=== PATIENT | male | born 1960 | race Hispanic/Latino ===

== ENCOUNTER 2016-11-24 12:46 | Inpatient (IN) | payer MEDICARE ==
[2016-11-24] MEDS ORDERED: MORPHINE IV ONE (13:34)
[2016-11-24] MEDS ORDERED: ZOFRAN IV ONE (13:34)
[2016-11-24] MEDS ORDERED: ZOFRAN ONE (13:35)
[2016-11-24] MEDS ORDERED: MORPHINE ONE (13:35)
--- NOTE | 2016-11-24 13:50 | XRay Report ---
AP CHEST: HISTORY: Hypertension CABG changes. AP view of the chest demonstrates a normal mediastinal and cardiac contour with clear lungs and normal bony and soft tissue structures. IMPRESSION: No acute cardiopulmonary process identified.
[2016-11-24 14:28] LABS: Urine Drugs of Abuse Note Disclamer
[2016-11-24 14:41] LABS: Basophils % (Auto) 0.8 % (0.0-1.8); Eosinophils % (Auto) 4.3 % (0.0-4.3); Hematocrit 39.4 % (35.5-45.6); Hemoglobin 13.3 gm/dl (11.8-15.2); Mean Corpuscular HGB Conc 34 % (32-34); Mean Corpuscular Hemoglobin 31 pg (28-32); Mean Corpuscular Volume 91 fl (84-94); Platelet Count 148 K/mm3 (140-440); Red Blood Count 4.32 M/mm3 (3.65-5.03); Red Cell Distribution Width 13.2 % (13.2-15.2); White Blood Count 11.2 K/mm3 (4.5-11.0)
--- NOTE | 2016-11-24 14:48 | Emergency Department Report ---
ED Chest Pain HPI - General Chief Complaint: Chest Pain Stated Complaint: CHEST PAIN Source: patient, EMS Mode of arrival: Stretcher Limitations: Altered Mental Status - History of Present Illness Initial Comments: Patient appears to be a somewhat strange historian. He received 2 mg of morphine and he states maybe that affected him. I see that he is on Keppra. He started to somewhat ramble about sometimes he looks out into space. I don't know if he has complex partial seizures and that's why he is on Keppra. However , I verified with the nurse in the EMS that the patient was not transported today for a seizure. Apparently he lives with his brother. He does admit that he had chest pain this morning and that he had some left arm numbness. He states the chest pain is 8 out of 10 although he appears in no distress at all after 2 mg of morphine. He states he has some minimal nausea and shortness of breath. Review of his previous records indicate that that he was admitted in August 2016. He was seen by Dr. Cordoba for chest pain. He is status post CABG approximately 10 years ago. It is thought that he had a stent in 2012 although the note states "?" regarding the date. MD Complaint: chest pain -: minutes(s) (patient was unclear about the duration) Onset: during rest Pain Location: substernal Pain Radiation: other (left arm numbness) Severity: moderate Quality: dull Consistency: now resolved Improves With: nothing Worsens With: nothing re: nausea, dyspnea Other Symptoms: denies: cough, fever, syncope Treatments Prior to Arrival: none Aspirin use within the Past 7 Days: (0) No - Related Data Home Medications Medication Instructions Recorded Confirmed Last Taken Aspirin EC [Aspirin Enteric Coated 81 mg PO DAILY 06/24/16 08/28/16 Unknown TAB] Carvedilol [Coreg] 3.125 mg PO BID 06/24/16 08/28/16 Unknown Isosorbide Mononitrate 30 mg PO DAILY 06/24/16 08/28/16 Unknown Lisinopril [Zestril TAB] 20 mg PO QDAY 06/24/16 08/28/16 Unknown Previous Rx's Medication Instructions Recorded Last Taken Type Simvastatin [Zocor TAB] 40 mg PO QHS #30 tablet 02/02/16 Unknown Rx levETIRAcetam [Keppra TAB] 1,000 mg PO BID #120 tablet 02/02/16 Unknown Rx Allergies Allergy/AdvReac Type Severity Reaction Status Date / Time No Known Allergies Allergy Verified 06/24/16 13:43 Heart Score - HEART Score History: Moderately suspicious EKG: Non-specific Age: 45-65 Risk factors: > 3 risk factors or hx of atherosclerotic disease Troponin: < normal limit HEART Score: 5 - Critical Actions Critical Actions: 4-6 pts:12-16.6% risk of adverse cardiac event. Should be admitted ED Review of Systems ROS: Stated complaint: CHEST PAIN Other details as noted in HPI Constitutional: denies: chills, fever Eyes: denies: eye pain, eye discharge, vision change ENT: denies: ear pain, throat pain Respiratory: shortness of breath. denies: cough, wheezing Cardiovascular: chest pain. denies: palpitations Endocrine: no symptoms reported Gastrointestinal: nausea. denies: abdominal pain, diarrhea Genitourinary: denies: urgency, dysuria Musculoskeletal: denies: back pain, joint swelling, arthralgia Skin: denies: rash, lesions Neurological: denies: headache, weakness, paresthesias Psychiatric: denies: anxiety, depression Hematological/Lymphatic: denies: easy bleeding, easy bruising ED Past Medical Hx - Past Medical History Previous Medical History?: Yes Hx Hypertension: Yes Hx CVA: Yes (2009) Hx Heart Attack/AMI: Yes Hx Congestive Heart Failure: No Hx Diabetes: No Hx Headaches / Migraines: Yes Hx Seizures: Yes Hx Asthma: No Hx COPD: No Hx HIV: No Additional medical history: coronary artery disease - Surgical History Hx Coronary Stent: Yes Hx Open Heart Surgery: Yes Additional Surgical History: triple bypass. stent - Social History Smoking Status: Current Every Day Smoker Substance Use Type: None - Medications Home Medications: Home Medications Medication Instructions Recorded Confirmed Last Taken Type Simvastatin [Zocor TAB] 40 mg PO QHS #30 tablet 02/02/16 08/28/16 Unknown Rx levETIRAcetam [Keppra TAB] 1,000 mg PO BID #120 tablet 02/02/16 08/28/16 Unknown Rx Aspirin EC [Aspirin Enteric Coated 81 mg PO DAILY 06/24/16 08/28/16 Unknown History TAB] Carvedilol [Coreg] 3.125 mg PO BID 06/24/16 08/28/16 Unknown History Isosorbide Mononitrate 30 mg PO DAILY 06/24/16 08/28/16 Unknown History Lisinopril [Zestril TAB] 20 mg PO QDAY 06/24/16 08/28/16 Unknown History ED Physical Exam - General General appearance: alert, in no apparent distress - Head Head exam: Present: atraumatic, normocephalic - Eye Eye exam: Present: normal appearance. Absent: scleral icterus - ENT ENT exam: Present: normal exam, mucous membranes moist - Neck Neck exam: Present: normal inspection - Respiratory Respiratory exam: Present: normal lung sounds bilaterally. Absent: respiratory distress - Cardiovascular Cardiovascular Exam: Present: regular rate, normal rhythm. Absent: systolic murmur, diastolic murmur, rubs, gallop - GI/Abdominal GI/Abdominal exam: Present: soft, normal bowel sounds. Absent: distended, tenderness, guarding, rebound, rigid - Rectal Rectal exam: Present: deferred - Extremities Exam Extremities exam: Present: normal inspection - Back Exam Back exam: Present: normal inspection - Neurological Exam Neurological exam: Present: alert, oriented X3, CN II-XII intact. Absent: motor sensory deficit - Psychiatric Psychiatric exam: Present: normal affect, normal mood - Skin Skin exam: Present: warm, dry, intact, normal color. Absent: rash ED Course Vital Signs 11/24/16 11/24/16 11/24/16 13:04 13:11 13:21 Pulse Rate 91 H 53 L Respiratory 19 21 22 Rate Blood Pressure 122/72 125/72 O2 Sat by Pulse 99 99 Oximetry 11/24/16 11/24/16 11/24/16 13:30 13:45 13:56 Pulse Rate Respiratory 17 18 21 Rate Blood Pressure 114/71 O2 Sat by Pulse 99 99 Oximetry GIANLUCA score - Gianluca Score Age > 65: (0) No Aspirin use within the Past 7 Days: (0) No 3 or more CAD Risk Factors: (1) Yes 2 or more Angina events in past 24 hrs: (0) No Known CAD with more than 50% Stenosis: (1) Yes Elevated Cardiac Markers: (0) No ST Deviation Greater than 0.5mm: (0) No GIANLUCA Score: 2 ED Medical Decision Making - Lab Data Result diagrams: 11/24/16 14:14 Laboratory Results - last 24 hr 11/24/16 14:14 WBC 11.2 H RBC 4.32 Hgb 13.3 Hct 39.4 MCV 91 MCH 31 MCHC 34 RDW 13.2 Plt Count 148 Lymph % (Auto) 31.4 Lee % (Auto) 6.9 Eos % (Auto) 4.3 Baso % (Auto) 0.8 Lymph # 3.5 Lee # 0.8 Eos # 0.5 H Baso # 0.1 Seg Neutrophils % 56.6 Seg Neutrophils # 6.4 Laboratory Results - last 24 hr 11/24/16 11/24/16 11/24/16 14:14 14:14 14:14 WBC 11.2 H RBC 4.32 Hgb 13.3 Hct 39.4 MCV 91 MCH 31 MCHC 34 RDW 13.2 Plt Count 148 Lymph % (Auto) 31.4 Lee % (Auto) 6.9 Eos % (Auto) 4.3 Baso % (Auto) 0.8 Lymph # 3.5 Lee # 0.8 Eos # 0.5 H Baso # 0.1 Seg Neutrophils % 56.6 Seg Neutrophils # 6.4 PT 13.9 INR 1.02 APTT 29.5 Sodium 141 Potassium 4.9 Chloride 102.7 Carbon Dioxide 24 Anion Gap 19 BUN 11 Creatinine 1.0 Estimated GFR > 60 BUN/Creatinine Ratio 11.00 Glucose 100 Calcium 9.1 Magnesium Total Bilirubin AST ALT Alkaline Phosphatase Troponin T < 0.010 NT-Pro-B Natriuret Pep Total Protein Albumin Albumin/Globulin Ratio 11/24/16 14:14 WBC RBC Hgb Hct MCV MCH MCHC RDW Plt Count Lymph % (Auto) Lee % (Auto) Eos % (Auto) Baso % (Auto) Lymph # Lee # Eos # Baso # Seg Neutrophils % Seg Neutrophils # PT INR APTT Sodium Potassium Chloride Carbon Dioxide Anion Gap BUN Creatinine Estimated GFR BUN/Creatinine Ratio Glucose Calcium Magnesium 2.10 Total Bilirubin 0.40 AST 26 ALT 20 Alkaline Phosphatase 59 Troponin T NT-Pro-B Natriuret Pep 282.8 Total Protein 7.0 Albumin 4.4 Albumin/Globulin Ratio 1.7 - EKG Data -: EKG Interpreted by Pr EKG shows normal: sinus rhythm Rate: bradycardia - EKG Data When compared to previous EKG there are: no significant change Old inferior zone no acute ischemic changes of right bundle-branch block 11/24/16 15:02 - Radiology Data interpreted by me: Chest x-ray shows cardiomegaly without decompensation Critical care attestation.: If time is entered above; I have spent that time in minutes in the direct care of this critically ill patient, excluding procedure time. ED Disposition Clinical Impression: Hx of CABG, Right bundle branch block, Sinus bradycardia Chest pain Qualifiers: Chest pain type: unspecified Qualified Code(s): R07.9 - Chest pain, unspecified Disposition: OP ADMIT IP TO THIS HOSP Is pt being admited?: Yes Does the pt Need Aspirin: Yes Condition: Stable Instructions: Chest Pain (ED) Referrals: PRIMARY CARE, [Primary Care Provider] - 3-5 Days Time of Disposition: 15:11
[2016-11-24 14:51] LABS: INR 1.02 (0.87-1.13)
[2016-11-24 14:52] LABS: Partial Thromboplastin Time 29.5 Sec. (24.2-36.6)
[2016-11-24 14:57] LABS: Anion Gap 19 mmol/L; Blood Urea Nitrogen 11 mg/dL (9-20); Calcium 9.1 mg/dL (8.4-10.2); Carbon Dioxide 24 mmol/L (22-30); Chloride 102.7 mmol/L (98-107); Glucose 100 mg/dL (75-100); Potassium 4.9 mmol/L (3.6-5.0); Sodium 141 mmol/L (137-145)
[2016-11-24 15:01] LABS: Alanine Aminotransferase 20 units/L (7-56); Albumin 4.4 g/dL (3.9-5); Albumin/Globulin Ratio 1.7 %; Alkaline Phosphatase 59 units/L (35-129)
[2016-11-24 15:02] LABS: Bilirubin,Direct < 0.2 mg/dL (0-0.2)
[2016-11-24] MEDS ORDERED: BABY ASPIRIN PO ONE (15:11)
--- NOTE | 2016-11-24 15:24 | Admit Criteria Form ---
Admission Criteria Documentation: CHEST PAIN Clinical Indications for Admission to Inpatient Care (Place 'X' for any and all applicable criteria): Admission is indicated for chest pain and ANY ONE of the following(1)(2)(3)(4)(5 ): [ ]I. Angina with acute coronary syndrome (Also use Myocardial Infarction or Angina guideline) [ ]II. Hemodynamic instability [X ]III. Angina needing acute intervention as indicated by ALL of the following (11)(12): [X ]a) Unstable angina is present as indicated by angina that is ANY ONE of the following: [X ]i) New onset [ ]ii) Nocturnal [ ]iii) Prolonged at rest [ ]iv) Progressive [X ]b) Angina warrants acute intervention as indicated by ANY ONE of the following: [ ]i) Recurrent angina (e.g, not responding as previously to treatment) [ ]ii) Angina at rest or with low-level activities despite initial medical therapy [ ]iii) New or presumably new ST-segment depression on ECG [ ]iv) Signs or symptoms of heart failure (eg, dyspnea, pulmonary edema) [ ]v) New or worsening mitral regurgitation [ ]vi) Hemodynamic instability [ ]vii) Dangerous arrhythmia (eg, sustained ventricular tachycardia) [ ]viii) History of percutaneous coronary intervention within 6 months [ X]ix) History of coronary artery bypass graft surgery [X ]x) GIANLUCA risk score of 2 or greater[A] [ ]xi) History of Diabetes(14) [ ]xii) High-risk cardiac ischemia findings on noninvasive testing (e.g, echocardiogram, treadmill testing, nuclear scan) [ ]xiii) Chronic renal insufficiency (ie, estimated GFR less than 60 mL/min/1.732m) [ ]xiv) Left ventricular ejection fraction less than 40% [ ]IV. Evidence of CA (eg, cardiac biomarkers positive, ST-segment elevation on ECG) also use Myocardial Infarction Criteria Form. [ ]V. Pulmonary edema [ ]. Respiratory distress [ ]VII. Chest pain indicative of serious diagnosis other than coronary artery disease (eg, aortic dissection) [ ]VIII. Contraindications and/or Inappropriate clinical situations for Observational Care in patients with Chest Pain, when ANY ONE of the following is required: [ ]a) Patient with risk factor for pulmonary embolism, acute coronary syndrome and myocardial infarction (18) [ ]b) Patient with Pulmonary embolism require an average LOS of 4.3 days, therefore emergency department observation management is inappropriate 18,23 [ ]c) Painful condition/s in the elderly, have the highest rate of recidivism after emergency department observation management (10.8%) 20,21,22 [ ]d) Elevated cardiac biomarker requires intensive and exhaustive care (19) [ ]IX. General contraindications and/or Inappropriate clinical situations for Observational Care in patients with Chest Pain, when ANY ONE of the following is required: [ ]a) Prediction of prolongation of LOS based on ANY ONE of the following may be considered as a contraindication for observational care 2, 3, 4, 5, 6, 7, 8, 9, 10, 11 [ ]i) Age > 65 yrs. [ ]ii) Patient arriving by ambulance [ ]iii) Patient with high acuity [ ]iv) Patient requiring vital sign monitoring [ ]v) Patient on IV medication [ ]b) Systolic blood pressures 180mmHg 3,12 [ ]c) Patient with altered mental status including delirium and other alteration of consciousness, (3) [ ]d) Patient whose discharge disposition will be to a snf home or rehabilitation home should not be managed in Emergency Department Observation Unit. CMS rule requires 3 days hospital stay before such placement. 3,13 [ ]e) Patient with failure to thrive due to broad array of etiologies 3,16,17 [ ]f) Inability to ambulate 3,14 Extended stay beyond goal length of stay may be needed for (1)(28): [ ]a) Specific condition diagnosed after evaluation (eg, pulmonary embolism, aortic dissection) [ ]b) Unstable angina [ ]c) Continued suspicion of acute coronary syndrome with inability to complete needed cardiac evaluation (eg, patient clinically unable to undergo stress testing) [ ]d) Myocardial infarction (Contents from ANGINA and CHEST PAIN clinical indications for admission to inpatient care have been integrated in this form) The original [employer] content created by [employer] has been revised. The portions of the content which have been revised are identified through the use of italic text or in bold, and [email or web address] has neither reviewed nor approved the modified material. All other unmodified content is copyright [employer]. Please see references footnoted in the original [facility] edition 2016 Admission Criteria Met: Yes
[2016-11-24 16:00] LABS: Creatine Kinase 373 units/L (55-170); Creatine Kinase MB 4.6 ng/mL (0.0-4.0)
[2016-11-24 22:13] LABS: Creatine Kinase MB 4.5 ng/mL (0.0-4.0)
[2016-11-24 22:14] LABS: Creatine Kinase 329 units/L (55-170)
--- NOTE | 2016-11-24 23:56 | History and Physical Report ---
History of Present Illness Date of examination: 11/24/16 Date of admission: 11/24/16 15:07 Chief complaint: CHest pain for 1 day History of present illness: MECHOOPDA:L sided chest pain for one day internmittent in nature.No diaphoresis or palpitations or SOB.Radiation to L arm present. Heart Score - HEART Score History: Moderately suspicious EKG: Non-specific Age: 45-65 Risk factors: > 3 risk factors or hx of atherosclerotic disease Troponin: < normal limit HEART Score: 5 - Critical Actions Critical Actions: 4-6 pts:12-16.6% risk of adverse cardiac event. Should be admitted ED Review of Systems ROS: Stated complaint: CHEST PAIN Other details as noted in HPI Constitutional: denies: chills, fever Eyes: denies: eye pain, eye discharge, vision change ENT: denies: ear pain, throat pain Respiratory: shortness of breath. denies: cough, wheezing Cardiovascular: chest pain. denies: palpitations Endocrine: no symptoms reported Gastrointestinal: nausea. denies: abdominal pain, diarrhea Genitourinary: denies: urgency, dysuria Musculoskeletal: denies: back pain, joint swelling, arthralgia Skin: denies: rash, lesions Neurological: denies: headache, weakness, paresthesias Psychiatric: denies: anxiety, depression Hematological/Lymphatic: denies: easy bleeding, easy bruising ED Past Medical Hx - Past Medical History Previous Medical History?: Yes Hx Hypertension: Yes Hx CVA: Yes (2009) Hx Heart Attack/AMI: Yes Hx Congestive Heart Failure: No Hx Diabetes: No Hx Headaches / Migraines: Yes Hx Seizures: Yes Hx Asthma: No Hx COPD: No Hx HIV: No Additional medical history: coronary artery disease - Surgical History Hx Coronary Stent: Yes Hx Open Heart Surgery: Yes Additional Surgical History: triple bypass. stent - Social History Smoking Status: Current Every Day Smoker Substance Use Type: None - Medications Home Medications: Home Medications Medication Instructions Recorded Confirmed Last Taken Type Simvastatin [Zocor TAB] 40 mg PO QHS #30 tablet 02/02/16 08/28/16 Unknown Rx levETIRAcetam [Keppra TAB] 1,000 mg PO BID #120 tablet 02/02/16 08/28/16 Unknown Rx Aspirin EC [Aspirin Enteric Coated 81 mg PO DAILY 06/24/16 08/28/16 Unknown History TAB] Carvedilol [Coreg] 3.125 mg PO BID 06/24/16 08/28/16 Unknown History Isosorbide Mononitrate 30 mg PO DAILY 06/24/16 08/28/16 Unknown History Lisinopril [Zestril TAB] 20 mg PO QDAY 06/24/16 08/28/16 Unknown History Medications and Allergies Allergies Allergy/AdvReac Type Severity Reaction Status Date / Time No Known Allergies Allergy Verified 06/24/16 13:43 Home Medications Medication Instructions Recorded Confirmed Last Taken Type Simvastatin [Zocor TAB] 40 mg PO QHS #30 tablet 02/02/16 11/24/16 11/24/16 Rx Aspirin EC [Aspirin Enteric Coated 81 mg PO DAILY 06/24/16 11/24/16 11/24/16 History TAB] Atenolol [Tenormin] 50 mg PO DAILY 11/24/16 11/24/16 11/24/16 History Ergocalciferol [Vitamin D2] 1 cap PO QWEEK 11/24/16 11/24/16 11/24/16 History Lisinopril [Zestril TAB] 10 mg PO QDAY 11/24/16 11/24/16 11/24/16 History Meloxicam [Mobic] 15 mg PO DAILY PRN 11/24/16 11/24/16 11/17/16 History Exam - Constitutional Vitals: Temp Pulse Resp BP Pulse Ox 97.5 F L 0 L 20 128/72 97 11/24/16 20:59 11/24/16 20:59 11/24/16 20:59 11/24/16 20:59 11/24/16 20:59 General appearance: Present: no acute distress, well-nourished - EENT Eyes: Present: PERRL ENT: hearing intact, clear oral mucosa - Neck Neck: Present: supple, normal ROM - Respiratory Respiratory effort: normal Respiratory: bilateral: CTA - Cardiovascular Heart Sounds: Present: S1 & S2. Absent: rub, click - Extremities Extremities: pulses symmetrical, No edema Peripheral Pulses: within normal limits - Abdominal General gastrointestinal: Present: soft, non-tender, non-distended, normal bowel sounds Male genitourinary: Present: normal - Integumentary Integumentary: Present: clear, warm, dry - Musculoskeletal Musculoskeletal: gait normal, strength equal bilaterally - Psychiatric Psychiatric: appropriate mood/affect, intact judgment & insight - Neurologic Neurologic: CNII-XII intact, moves all extremities Results - Labs CBC & Chem 7: 11/24/16 14:14 11/24/16 14:14 Labs: Laboratory Last Values WBC 11.2 K/mm3 (4.5-11.0) H 11/24/16 14:14 RBC 4.32 M/mm3 (3.65-5.03) 11/24/16 14:14 Hgb 13.3 gm/dl (11.8-15.2) 11/24/16 14:14 Hct 39.4 % (35.5-45.6) 11/24/16 14:14 MCV 91 fl (84-94) 11/24/16 14:14 MCH 31 pg (28-32) 11/24/16 14:14 MCHC 34 % (32-34) 11/24/16 14:14 RDW 13.2 % (13.2-15.2) 11/24/16 14:14 Plt Count 148 K/mm3 (140-440) 11/24/16 14:14 Lymph % (Auto) 31.4 % (13.4-35.0) 11/24/16 14:14 [place] % (Auto) 6.9 % (0.0-7.3) 11/24/16 14:14 Eos % (Auto) 4.3 % (0.0-4.3) 11/24/16 14:14 Baso % (Auto) 0.8 % (0.0-1.8) 11/24/16 14:14 Lymph # 3.5 K/mm3 (1.2-5.4) 11/24/16 14:14 [place] # 0.8 K/mm3 (0.0-0.8) 11/24/16 14:14 Eos # 0.5 K/mm3 (0.0-0.4) H 11/24/16 14:14 Baso # 0.1 K/mm3 (0.0-0.1) 11/24/16 14:14 Seg Neutrophils % 56.6 % (40.0-70.0) 11/24/16 14:14 Seg Neutrophils # 6.4 K/mm3 (1.8-7.7) 11/24/16 14:14 PT 13.9 Sec. (12.2-14.9) 11/24/16 14:14 INR 1.02 (0.87-1.13) 11/24/16 14:14 APTT 29.5 Sec. (24.2-36.6) 11/24/16 14:14 Sodium 141 mmol/L (137-145) 11/24/16 14:14 Potassium 4.9 mmol/L (3.6-5.0) 11/24/16 14:14 Chloride 102.7 mmol/L (98-107) 11/24/16 14:14 Carbon Dioxide 24 mmol/L (22-30) 11/24/16 14:14 Anion Gap 19 mmol/L 11/24/16 14:14 BUN 11 mg/dL (9-20) 11/24/16 14:14 Creatinine 1.0 mg/dL (0.8-1.5) 11/24/16 14:14 Estimated GFR > 60 ml/min 11/24/16 14:14 BUN/Creatinine Ratio 11.00 % 11/24/16 14:14 Glucose 100 mg/dL (75-100) 11/24/16 14:14 Calcium 9.1 mg/dL (8.4-10.2) 11/24/16 14:14 Magnesium 2.10 mg/dL (1.7-2.3) 11/24/16 14:14 Total Bilirubin 0.40 mg/dL (0.1-1.2) 11/24/16 14:14 Direct Bilirubin < 0.2 mg/dL (0-0.2) 11/24/16 14:14 AST 26 units/L (5-40) 11/24/16 14:14 ALT 20 units/L (7-56) 11/24/16 14:14 Alkaline Phosphatase 59 units/L (35-129) 11/24/16 14:14 Total Creatine Kinase 329 units/L (55-170) H 11/24/16 21:42 CK-MB (CK-2) 4.5 ng/mL (0.0-4.0) H 11/24/16 21:42 CK-MB (CK-2) Rel Index 1.3 (0-4) 11/24/16 21:42 Troponin T < 0.010 ng/mL (0.00-0.029) 11/24/16 21:42 NT-Pro-B Natriuret Pep 282.8 pg/mL (0-900) 11/24/16 14:14 Total Protein 7.0 g/dL (6.3-8.2) 11/24/16 14:14 Albumin 4.4 g/dL (3.9-5) 11/24/16 14:14 Albumin/Globulin Ratio 1.7 % 11/24/16 14:14 Urine Opiates Screen Presumptive negative 11/24/16 Unknown Urine Methadone Screen Presumptive negative 11/24/16 Unknown Ur Barbiturates Screen Presumptive negative 11/24/16 Unknown Ur Phencyclidine Scrn Presumptive negative 11/24/16 Unknown Ur Amphetamines Screen Presumptive negative 11/24/16 Unknown U Benzodiazepines Scrn Presumptive negative 11/24/16 Unknown Urine Cocaine Screen Presumptive negative 11/24/16 Unknown U Marijuana (THC) Screen Presumptive positive 11/24/16 Unknown Drugs of Abuse Note Disclamer 11/24/16 Unknown - Imaging and Cardiology EKG: report reviewed Chest x-ray: report reviewed Assessment and Plan Advance Directives: Yes (FC) VTE prophylaxis?: Chemical Plan of care discussed with patient/family: Yes - Patient Problems (1) ACS (acute coronary syndrome) Current Visit: No Status: Acute Plan to address problem: Serial Ce's and Lexiscan in AM (2) HTN (hypertension) Current Visit: No Status: Chronic Qualifiers: Hypertension type: essential hypertension Qualified Code(s): I10 - Essential (primary) hypertension Plan to address problem: Cont Carvedilol and Lisinopril (3) CAD (coronary artery disease) Current Visit: No Status: Chronic Qualifiers: Coronary Disease-Associated Artery/Lesion type: [place] artery Habematolel vs. transplanted heart: N Associated angina: with unspecified angina Plan to address problem: Cont ISMO (4) Nicotine dependence Current Visit: Yes Status: Acute Qualifiers: Nicotine product type: N Substance use status: S Plan to address problem: Nicoderm patch (5) DVT prophylaxis Current Visit: No Status: Chronic Plan to address problem: On lovenox
[2016-11-25] MEDS ORDERED: MORPHINE IV PRN (05:19)
[2016-11-25] MEDS ORDERED: ZOFRAN IV PRN (05:19)
[2016-11-25 08:07] VITALS: BP 119/66
[2016-11-25] MEDS ORDERED: HABITROL TD SCH (10:00)
[2016-11-25] MEDS: NITRO-BID 2% TP SCH ×2 (10:05→10:06)
--- NOTE | 2016-11-25 11:40 | Discharge Summary ---
Providers - Providers Date of Admission: 11/24/16 15:07 Date of discharge: 11/25/16 Attending physician: SHEREE ZEPEDA Cardiology Primary care physician: CELL BIOLOGY SCIENTIST Hospitalization Reason for admission: chest pain Condition: Stable Hospital course: This is a 56-year-old male who presented through the emergency department with significant past medical history of hypertension, CVA (2010, [place] and seizure disorder with complaints of chest pain. Patient underwent recent stress thallium in August of this year with [facility] and was found to have large fixed inferolateral defect with reduced ejection fraction of 33% but no reversible defects noted. Patient was seen by cardiology consultation Disposition: DC-01 TO HOME OR SELFCARE - Discharge Diagnoses (1) Costochondritis Status: Acute (2) Chest pain Status: Acute Qualifiers: Chest pain type: unspecified Ischemic chest pain type: I Qualified Code(s ): R07.9 - Chest pain, unspecified Comment: Chest pain noncardiogenic most likely chest wall pain costochondritis. (3) HTN (hypertension) Status: Chronic Qualifiers: Hypertension type: essential hypertension Qualified Code(s): I10 - Essential (primary) hypertension Core Measure Documentation - Palliative Care Palliative Care/ Comfort Measures: Not Applicable - Core Measures Any of the following diagnoses?: none Exam - Constitutional Vitals: Temp Pulse Resp BP Pulse Ox 97.6 F 50 L 20 119/66 96 11/25/16 08:03 11/25/16 08:03 11/25/16 08:03 11/25/16 08:03 11/25/16 10:00 General appearance: Present: no acute distress, well-nourished - EENT Eyes: Present: PERRL ENT: hearing intact, clear oral mucosa - Neck Neck: Present: supple, normal ROM - Respiratory Respiratory effort: normal Respiratory: bilateral: CTA - Cardiovascular Heart Sounds: Present: S1 & S2. Absent: rub, click - Extremities Extremities: pulses symmetrical, No edema Peripheral Pulses: within normal limits - Abdominal General gastrointestinal: Present: soft, non-tender, non-distended, normal bowel sounds Male genitourinary: Present: normal - Integumentary Integumentary: Present: clear, warm, dry - Musculoskeletal Musculoskeletal: gait normal, strength equal bilaterally - Psychiatric Psychiatric: appropriate mood/affect, intact judgment & insight - Neurologic Neurologic: CNII-XII intact, moves all extremities Plan Activity: no restrictions Weight Bearing Status: Full Weight Bearing Diet: low fat, low cholesterol, low salt Follow up with: PRIMARY CARE,MD [Primary Care Provider] - 3-5 Days Prescriptions: Aspirin EC [Aspirin Enteric Coated TAB] 81 mg PO DAILY #30 tablet Atenolol [Tenormin] 50 mg PO DAILY #30 tablet Ergocalciferol [Vitamin D2] 1 cap PO QWEEK #4 capsule Lisinopril [Zestril TAB] 10 mg PO QDAY #30 tablet Simvastatin [Zocor TAB] 40 mg PO QHS #30 tablet
--- NOTE | 2016-11-25 12:21 | Consultation ---
History of Present Illness Consult date: 11/25/16 Requesting physician: SHEREE ZEPEDA History of present illness: The pt is a 56 YO male with a past medical history significant for CAD, s/p [facility]3 [facility] (07[facility]), HTN, HLP, ICMP, [place] in 1996, seizure disorder, tobacco use, and recurrent chest pain. He has been seen by our practice on prior hospitalizations but has been noncompliant with OP follow up. He is a rather poor historian. 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 He describes his chest pain as a right-sided stabbing pain which is aggravated by deep inspiration and sometimes associated with mild SOB. He denies any palpitations, nausea, vomiting, diaphoresis, dizziness or syncope. On evaluation, he reports that his chest pain has resolved. Lexiscan MPI stress test completed 08/29/2016 showed large fixed inferolateral defect with reduced ejection fraction of 33%. LHC 01/2013 and 04/2014 both showed severe but stable epicardial coronary disease , ICMP. Echo 07/2015 showed moderately dilated left atrium, mild to moderate MR, mild TR, mild AR, EF 45-50%, impaired relaxation. Past History Past Medical History: CAD, hypertension, hyperlipidemia, other (ICMP) Past Surgical History: CABG Social history: smoking. denies: alcohol abuse, prescription drug abuse Medications and Allergies Allergies Allergy/AdvReac Type Severity Reaction Status Date / Time No Known Allergies Allergy Verified 06/24/16 13:43 Home Medications Medication Instructions Recorded Confirmed Last Taken Type Meloxicam [Mobic] 15 mg PO DAILY PRN 11/24/16 11/24/16 11/17/16 History Aspirin EC [Aspirin Enteric Coated 81 mg PO DAILY #30 tablet 11/25/16 Unknown Rx TAB] Atenolol [Tenormin] 50 mg PO DAILY #30 tablet 11/25/16 Unknown Rx Ergocalciferol [Vitamin D2] 1 cap PO QWEEK #4 capsule 11/25/16 Unknown Rx Lisinopril [Zestril TAB] 10 mg PO QDAY #30 tablet 11/25/16 Unknown Rx Nicotine [Habitrol] 21 mg TD QDAY patch 11/25/16 Unknown Rx Simvastatin [Zocor TAB] 40 mg PO QHS #30 tablet 11/25/16 Unknown Rx Active Meds: Active Medications Morphine Sulfate (Morphine) 2 mg IV Q4H PRN PRN Reason: Pain, Moderate (4-6) Nicotine (Habitrol) 21 mg TD QDAY [facility] Last Admin: 11/25/16 10:05 Dose: 21 mg Nitroglycerin (Nitro-Bid 2%) 0.5 inch TP QIDNTG MARION PRN Reason: Protocol Last Admin: 11/25/16 10:06 Dose: 0.5 inch Ondansetron HCl (Zofran) 4 mg IV Q6H PRN PRN Reason: Nausea And Vomiting Review of Systems All systems: negative Cardiovascular: chest pain, shortness of breath, no orthopnea, no dyspnea on exertion Respiratory: shortness of breath, pain on inspiration, no cough, no dyspnea on exertion, no congestion, no wheezing Gastrointestinal: no abdominal pain, no nausea, no vomiting, no diarrhea, no constipation, no change in bowel habits Neurological: no syncope Physical Examination Last Vital Signs Temp 97.6 F 11/25/16 08:03 Pulse 50 L 11/25/16 08:03 Resp 20 11/25/16 08:03 BP 119/66 11/25/16 08:03 Pulse Ox 96 11/25/16 10:00 General appearance: no acute distress HEENT: Positive: PERRL, Normocephaly, Mucus Membranes Moist Neck: Positive: neck supple, trachea midline Cardiac: Positive: Reg Rate and Rhythm, S1/S2 Lungs: Positive: Normal Exam, clear to auscultation, Normal Breath Sounds, No Wheeze, Rales, Rhonchi Neuro: Positive: Grossly Intact, Cranial Nerve 2-12 Intact Abdomen: Positive: Unremarkable, Soft, Active Bowel Sounds Skin: Positive: Clear Musculoskeletal: No Fluid Collection, No Pain, Normal Range of Motion Extremities: Present: upper extr. pulses, lower extr. pulses. Absent: edema Results 11/24/16 14:14 11/24/16 14:14 Cardiac Enzymes 11/24/16 11/24/16 Range/Units 15:29 21:42 CK-MB (CK-2) 4.6 H 4.5 H (0.0-4.0) ng/mL - Imaging and Cardiology Echo: report reviewed Cardiac cath: report reviewed EKG: report reviewed, image reviewed EKG interpretations - Telemetry EKG Rhythm: Sinus Rhythm - EKG Sinus rhythms and dysrhythmias: sinus rhythm AV and intraventricular conduction: right bundle branch block Assessment and Plan Assessment: Atypical chest pain - currently resolved; was pleuritic in nature; ECG with NAF ; Leo negative for AMI; CXR with NAF Coronary artery disease s/p CABG Hypertension Hyperlipidemia Right bundle branch block ICMP H/o [place] in 1996 H/o seizure d/o Tobacco use Plan: Patient with hx. of [place], s/p CABG x3 in 2008 [facility], was admitted with atypical chest pain, EKG showed NSR with evidence of old IWMI and RBBB. Lexiscan nuclear imaging 08/29/2016 showed fixed inferolateral defect, EF 37%, no reversible defects noted. Resume home BB, ACEI, ASA, and statin. Currently stable cardiac status. Pt may discharge home from cardiology standpoint. Follow up in our office with Deb Inman NP, within 1 week of hospital discharge ([phone]). The patient has been seen in conjunction with Dr. Mejia who agrees with the assessment and plan of care.
[2016-11-25] MEDS ORDERED: ZOCOR PO SCH ×2 (22:00)
[2016-11-26] MEDS ORDERED: TENORMIN PO SCH (10:00)
[2016-11-26] MEDS ORDERED: BABY ASPIRIN PO SCH ×2 (10:00)
[2016-11-26] MEDS ORDERED: ZESTRIL PO SCH ×2 (10:00)
== END 2016-11-25 15:31 | disposition home or self-care (01) | DRG 206 ==
LOC: ED 12:46 → 4A 15:07
PROVIDERS: ADMIT Internal Medicine; ATTEND Hospitalist
DX: M94.0 Chondrocostal junction syndrome [Tietze] (principal); I24.9 Acute ischemic heart disease, unspecified; I10 Essential (primary) hypertension; I25.10 Atherosclerotic heart disease of native coronary artery without angina pectoris; G43.909 Migraine, unspecified, not intractable, without status migrainosus; F17.200 Nicotine dependence, unspecified, uncomplicated; G40.909 Epilepsy, unspecified, not intractable, without status epilepticus; E78.5 Hyperlipidemia, unspecified; I45.10 Unspecified right bundle-branch block; Z86.73 Personal history of transient ischemic attack (TIA), and cerebral infarction without residual deficits; Z95.1 Presence of aortocoronary bypass graft
CPT/HCPCS: 36415; 71010; 80048; 80074; 80307; 82550; 82553; 83735; 83880; 84484; 85025; 85610; 85730; 93005; 93010; 96374; 96375; 99406; J2270; J2405

== ENCOUNTER 2016-12-09 19:07 | Emergency (ER) | payer MEDICARE ==
[2016-12-09 20:28] LABS: Basophils % (Auto) 0.6 % (0.0-1.8); Hemoglobin 13.2 gm/dl (11.8-15.2); Mean Corpuscular HGB Conc 34 % (32-34); Mean Corpuscular Hemoglobin 31 pg (28-32); Mean Corpuscular Volume 91 fl (84-94); Platelet Count 144 K/mm3 (140-440); Red Blood Count 4.29 M/mm3 (3.65-5.03); Red Cell Distribution Width 13.4 % (13.2-15.2); White Blood Count 10.3 K/mm3 (4.5-11.0)
[2016-12-09 20:48] LABS: Anion Gap 19 mmol/L; BUN/Creatinine Ratio 13.33; Blood Urea Nitrogen 12 mg/dL (9-20); Calcium 9.1 mg/dL (8.4-10.2); Carbon Dioxide 24 mmol/L (22-30); Chloride 103.8 mmol/L (98-107); Glucose 98 mg/dL (75-100); Potassium 4.7 mmol/L (3.6-5.0); Sodium 142 mmol/L (137-145)
[2016-12-09] MEDS ORDERED: PEPCID IV ONE (21:20)
[2016-12-09] MEDS ORDERED: CARAFATE PO ONE (21:20)
[2016-12-09] MEDS ORDERED: TORADOL IV ONE (21:20)
[2016-12-09] MEDS ORDERED: ALUM-MAG HYDROX-SIMETH 200-200-20MG/5ML PO ONE (21:20)
[2016-12-09] MEDS ORDERED: NACL 0.9% 500 ML 500 ML IV ONE (21:21)
--- NOTE | 2016-12-09 21:24 | Emergency Department Report ---
ED General Adult HPI - General Chief complaint: Chest Pain Stated complaint: WEAKNESS Time Seen by Provider: 12/09/16 20:56 Source: patient, family, EMS (ems notes not available at time of chart dictation), RN notes reviewed, old records reviewed Mode of arrival: Stretcher Limitations: No Limitations - History of Present Illness Initial comments: This is a 56-year-old male. He is previously unknown to me. Patient recently admitted to the hospital last week for dizziness, lightheadedness, near-syncope and chest pressure. Patient seen in consultation with cardiology. As per his assessment and plan from cardiology, patient had an echocardiogram done July 2015 which demonstrated an EF of 45-50%. Patient had a nuclear stress test August 2016 of this year, demonstrating a fixed inferolateral defect , with no reversible defects. Cardiology recommended holding home beta blockers in the context of sinus tachycardia. They recommended continuing other current cardiac management, and patient has been documented to be a for follow-up. The patient does admit to consuming tobacco and marijuana. The patient presents to the ER today with a complaint of chest pain and pressure. The pain is central, and does not rates the back, arms or neck. Patient denies vomiting and diaphoresis. He complains of dizziness and lightheadedness. Patient reports that he was doing heavy lifting and working outside in the heat. He reports that this is similar to prior symptoms from last week. The patient also complains of headache. The headache is global and throbbing. It is not sudden or thunderclap in nature. It did not reach maximal intensity within an hour. It is not the worse headache of his life. Patient had an negative CT scan of his brain last week. He was admitted to the hospital for chest pain and syncope, ruled out with serial troponins, and placed on telemetry monitoring. -: Gradual Location: head, chest Radiation: non-radiation Quality: aching Consistency: intermittent Improves with: none Worsens with: none Associated Symptoms: chest pain, headaches, weakness - Related Data Home Medications Medication Instructions Recorded Confirmed Last Taken Meloxicam [Mobic] 15 mg PO DAILY PRN 11/24/16 12/09/16 11/17/16 Atenolol 50 mg PO DAILY 12/09/16 12/09/16 Unknown Previous Rx's Medication Instructions Recorded Last Taken Type Aspirin EC [Aspirin Enteric Coated 81 mg PO DAILY #30 tablet 11/25/16 Unknown Rx TAB] Ergocalciferol [Vitamin D2] 1 cap PO QWEEK #4 capsule 11/25/16 Unknown Rx Lisinopril [Zestril TAB] 10 mg PO QDAY #30 tablet 11/25/16 Unknown Rx Simvastatin [Zocor TAB] 40 mg PO QHS #30 tablet 11/25/16 Unknown Rx Allergies Allergy/AdvReac Type Severity Reaction Status Date / Time No Known Allergies Allergy Verified 06/24/16 13:43 ED Review of Systems ROS: Stated complaint: WEAKNESS Other details as noted in HPI ED Past Medical Hx - Past Medical History Previous Medical History?: Yes Hx Hypertension: Yes Hx CVA: Yes (2009) Hx Heart Attack/AMI: Yes Hx Congestive Heart Failure: No Hx Diabetes: No Hx Headaches / Migraines: Yes Hx Seizures: Yes Hx Asthma: No Hx COPD: No Hx HIV: No Additional medical history: coronary artery disease - Surgical History Past Surgical History?: Yes Hx Coronary Stent: Yes Hx Open Heart Surgery: Yes Additional Surgical History: triple bypass. stent - Social History Smoking Status: Smoker, Current Status Unknown Substance Use Type: None - Medications Home Medications: Home Medications Medication Instructions Recorded Confirmed Last Taken Type Meloxicam [Mobic] 15 mg PO DAILY PRN 11/24/16 12/09/16 11/17/16 History Aspirin EC [Aspirin Enteric Coated 81 mg PO DAILY #30 tablet 11/25/16 12/09/16 Unknown Rx TAB] Ergocalciferol [Vitamin D2] 1 cap PO QWEEK #4 capsule 11/25/16 12/09/16 Unknown Rx Lisinopril [Zestril TAB] 10 mg PO QDAY #30 tablet 11/25/16 12/09/16 Unknown Rx Simvastatin [Zocor TAB] 40 mg PO QHS #30 tablet 11/25/16 12/09/16 Unknown Rx Atenolol 50 mg PO DAILY 12/09/16 12/09/16 Unknown History ED Physical Exam - General Limitations: No Limitations General appearance: alert, in no apparent distress - Head Head exam: Present: atraumatic, normocephalic - Eye Eye exam: Present: normal appearance, PERRL, EOMI, other (visual acuity intact to finger counting, color perception, reading at a close distance). Absent: nystagmus - ENT ENT exam: Present: normal exam, normal orophraynx, mucous membranes moist, normal external ear exam - Neck Neck exam: Present: normal inspection, full ROM. Absent: tenderness, meningismus - Respiratory Respiratory exam: Present: normal lung sounds bilaterally. Absent: respiratory distress, wheezes, rales, rhonchi, stridor, chest wall tenderness - Cardiovascular Cardiovascular Exam: Present: regular rate, normal rhythm, normal heart sounds. Absent: bradycardia, tachycardia, irregular rhythm, systolic murmur, diastolic murmur, rubs, gallop - GI/Abdominal GI/Abdominal exam: Present: soft, normal bowel sounds. Absent: distended, tenderness, guarding, rebound, rigid, pulsatile mass - Rectal Rectal exam: Present: deferred - Extremities Exam Extremities exam: Present: normal inspection, full ROM, normal capillary refill. Absent: pedal edema, joint swelling, calf tenderness - Back Exam Back exam: Present: normal inspection, full ROM. Absent: tenderness, CVA tenderness (R), CVA tenderness (L), muscle spasm, paraspinal tenderness, vertebral tenderness - Neurological Exam Neurological exam: Present: alert, oriented X3, normal gait (there is no pass pointing.), other (Extraocular movements intact. Tongue midline. No facial droop. Facial sensation intact to light touch in the V1, V2, V3 distribution bilaterally. 5 and 5 strength in 4 extremities.. Sensation is intact to light touch in 4 extremities.). Absent: motor sensory deficit - Psychiatric Psychiatric exam: Present: normal affect, normal mood - Skin Skin exam: Present: warm, dry, intact, normal color. Absent: rash ED Course Vital Signs 12/09/16 12/09/16 12/09/16 19:22 19:30 19:37 Temperature 98.4 F Pulse Rate 54 L 88 Respiratory 14 20 Rate Blood Pressure 114/73 114/73 O2 Sat by Pulse 96 97 Oximetry 12/09/16 12/09/16 19:40 19:52 Temperature Pulse Rate 59 L Respiratory 11 L 17 Rate Blood Pressure 114/73 O2 Sat by Pulse 97 Oximetry ED Medical Decision Making - Lab Data Result diagrams: 12/09/16 20:08 12/09/16 20:08 Vital Signs 12/09/16 12/09/16 12/09/16 19:22 19:30 19:37 Temperature 98.4 F Pulse Rate 54 L 88 Respiratory 14 20 Rate Blood Pressure 114/73 114/73 O2 Sat by Pulse 96 97 Oximetry 12/09/16 12/09/16 19:40 19:52 Temperature Pulse Rate 59 L Respiratory 11 L 17 Rate Blood Pressure 114/73 O2 Sat by Pulse 97 Oximetry Lab Results 12/09/16 12/09/16 12/09/16 Range/Units 20:08 20:08 21:39 WBC 10.3 (4.5-11.0) K/mm3 RBC 4.29 (3.65-5.03) M/mm3 Hgb 13.2 (11.8-15.2) gm/dl Hct 39.0 (35.5-45.6) % MCV 91 (84-94) fl MCH 31 (28-32) pg MCHC 34 (32-34) % RDW 13.4 (13.2-15.2) % Plt Count 144 (140-440) K/mm3 Lymph % (Auto) 30.2 (13.4-35.0) % [place] % (Auto) 7.8 H (0.0-7.3) % Eos % (Auto) 5.0 H (0.0-4.3) % Baso % (Auto) 0.6 (0.0-1.8) % Lymph # 3.1 (1.2-5.4) K/mm3 [place] # 0.8 (0.0-0.8) K/mm3 Eos # 0.5 H (0.0-0.4) K/mm3 Baso # 0.1 (0.0-0.1) K/mm3 Seg Neutrophils % 56.4 (40.0-70.0) % Seg Neutrophils # 5.8 (1.8-7.7) K/mm3 PT 14.1 (12.2-14.9) Sec. INR 1.10 (0.87-1.13) D-Dimer 215.78 (0-234) ng/mlDDU Carbon Dioxide 24 (22-30) mmol/L BUN 12 (9-20) mg/dL Creatinine 0.9 (0.8-1.5) mg/dL Estimated GFR > 60 ml/min BUN/Creatinine Ratio 13.33 % Glucose 98 (75-100) mg/dL Calcium 9.1 (8.4-10.2) mg/dL Total Creatine Kinase (55-170) units/L Troponin T < 0.010 (0.00-0.029) ng/mL 12/09/16 12/09/16 Range/Units 21:39 21:39 WBC (4.5-11.0) K/mm3 RBC (3.65-5.03) M/mm3 Hgb (11.8-15.2) gm/dl Hct (35.5-45.6) % MCV (84-94) fl MCH (28-32) pg MCHC (32-34) % RDW (13.2-15.2) % Plt Count (140-440) K/mm3 Lymph % (Auto) (13.4-35.0) % [place] % (Auto) (0.0-7.3) % Eos % (Auto) (0.0-4.3) % Baso % (Auto) (0.0-1.8) % Lymph # (1.2-5.4) K/mm3 [place] # (0.0-0.8) K/mm3 Eos # (0.0-0.4) K/mm3 Baso # (0.0-0.1) K/mm3 Seg Neutrophils % (40.0-70.0) % Seg Neutrophils # (1.8-7.7) K/mm3 PT (12.2-14.9) Sec. INR (0.87-1.13) D-Dimer (0-234) ng/mlDDU Carbon Dioxide (22-30) mmol/L BUN (9-20) mg/dL Creatinine (0.8-1.5) mg/dL Estimated GFR ml/min BUN/Creatinine Ratio % Glucose (75-100) mg/dL Calcium (8.4-10.2) mg/dL Total Creatine Kinase 361 H (55-170) units/L Troponin T < 0.010 (0.00-0.029) ng/mL - EKG Data -: EKG Interpreted by Me - EKG Data 12/09/16 22:48 EKG #1 demonstrates sinus bradycardia, 53 bpm, normal axis, right bundle branch block, not morphologically consistent with STEMI, QTC 474 ms , this EKG is unchanged from prior EKG on 12/02/2016. EKG #2 demonstrates sinus bradycardia, 48 bpm, normal axis, QTC 446 ms, not morphologically consistent with STEMI, appears unchanged from prior EKG. - Radiology Data Radiology results: image reviewed interpreted by me: X-ray of the chest is negative for acute disease - Medical Decision Making Differential diagnosis: Orthostasis, bradycardiac, migraine headache, tension headache, cluster headache, arrhythmia, structural cardiac disease, pulmonary embolus, acute coronary syndrome Assessment and plan: 56-year-old male with a complaint of headache, chest pressure, near syncope. Patient admitted to the hospital last week for similar symptoms. Troponins negative 2. D-dimer negative, low risk by well's criteria. X-ray of the chest is negative. Patient has a nonfocal neurologic examination, and walks with a steady gait, and had a negative noncontrast CT scan of the brain a week ago. Patient does report consuming cannabis and tobacco, and reports his last consumption was yesterday. He is clinically sober at this time, and he is instructed to discontinue consumption of marijuana and tobacco. 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 This was expressed to the patient and his sister, both of whom verbalize understanding. Patient recently had a negative nuclear stress test earlier on this year, it was cardiology's opinion last week that he did not require additional ACS risk stratification. Patient had his beta blockers discontinued as per cardiology's notes from last week, and while he has been somewhat bradycardic while here in the department, his blood pressure has not dropped, and stable. 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 I have encouraged the patient to discontinue toxic habits, hold beta blockers, to follow up as outpatient employee benefits administrator. Return precautions are reviewed. Sodium: 142 Potassium: 4.7 Chloride: 103.8 Low risk by GIANLUCA score, low risk by a heart score Critical care attestation.: If time is entered above; I have spent that time in minutes in the direct care of this critically ill patient, excluding procedure time. ED Disposition Clinical Impression: Chest pain, Nicotine dependence, Sinus bradycardia, Right bundle branch block Disposition: - TO HOME OR SELFCARE Is pt being admited?: No Does the pt Need Aspirin: No Condition: Stable Instructions: Chest Pain (ED) Additional Instructions: Discontinue consumption of tobacco and marijuana. Follow up with your employee benefits administrator within the next week to 2 weeks[address] a car or operate motor vehicles until cleared by your primary care doctor or employee benefits administrator. Do not do heavy work or heavy lifting outside in the heat, as this may be contributing to your symptoms. Return to the ER right away with new pain, worsened pain, migration of pain, fevers, chills, shortness of breath, loss of consciousness, intractable nausea or vomiting, inability to tolerate liquid feeds. Referrals: PRIMARY CARE, [Primary Care Provider] - 3-5 Days WALTER HOUSTON MD [Staff Physician] - 3-5 Days
[2016-12-09 22:10] LABS: INR 1.1 (0.87-1.13)
[2016-12-10 04:14] VITALS: BP 120/70
--- NOTE | 2016-12-10 07:56 | XRay Report ---
AP CHEST: HISTORY: chest pain CABG changes are noted. AP view of the chest demonstrates a normal mediastinal and cardiac contour with clear lungs and normal bony and soft tissue structures. IMPRESSION: Unremarkable AP chest.
== END 2016-12-10 04:11 | disposition home or self-care (01) ==
LOC: ED 19:07
DX: I45.10 Unspecified right bundle-branch block (principal); R00.1 Bradycardia, unspecified; F17.200 Nicotine dependence, unspecified, uncomplicated; I10 Essential (primary) hypertension; I25.2 Old myocardial infarction; G43.909 Migraine, unspecified, not intractable, without status migrainosus
CPT/HCPCS: 36415; 71010; 80048; 82550; 84484; 85025; 85379; 85610; 93005; 93010; 96374; 96375; 99285; J1885; J7040